=== PATIENT | male | born 1980 | race Caucasian/White ===

== ENCOUNTER 2016-04-30 10:42 | Outpatient (RCR) | payer OTHER | END 2016-07-29 | LOC: WSOH | DX: S96.912A Strain of unspecified muscle and tendon at ankle and foot level, left foot, initial encounter (principal); X50.1XXA Overexertion from prolonged static or awkward postures, initial encounter; Y99.0 Civilian activity done for income or pay ==

== ENCOUNTER → 2016-04-30 | Outpatient (REF) | LOC: WSOH 10:51 | DX: Z01.83 Encounter for blood typing (principal) ==

== ENCOUNTER 2018-10-03 10:54 | Emergency (ER) | payer OTHER ==
[~2018-10-03] VITALS: Ht 177.8 cm; Wt 102.3 kg
[2018-10-03 11:03] VITALS: BP 150/91; TEMP 98.8
[2018-10-03 12:10] VITALS: PULSE 70
== END 2018-10-03 12:10 | disposition home or self-care (01) ==
LOC: COL.ER 10:54
DX: S40.012A Contusion of left shoulder, initial encounter (principal); S70.02XA Contusion of left hip, initial encounter; V59.9XXA Occupant (driver) (passenger) of pick-up truck or van injured in unspecified traffic accident, initial encounter

== ENCOUNTER 2018-10-03 18:28 | Emergency (ER) | payer OTHER ==
[~2018-10-03] VITALS: Ht 177.8 cm; Wt 102.3 kg
[2018-10-03 22:58] VITALS: BP 133/78; PULSE 60; TEMP 97.4
== END 2018-10-03 23:42 | disposition home or self-care (01) ==
LOC: COL.ER 18:28
DX: F07.81 Postconcussional syndrome (principal); R11.0 Nausea; F17.220 Nicotine dependence, chewing tobacco, uncomplicated; Z90.49 Acquired absence of other specified parts of digestive tract
CPT/HCPCS: J2550

== ENCOUNTER → 2018-12-22 | Outpatient (CLI) | payer OTHER ==
[2018-12-22 10:37] LABS: BASO % 0.9 % (0.0-2.0); EOS # 0.1 (0.0-0.7); GRAN # 2.7 (1.4-6.5); GRAN % 58.2 % (42.2-75.2); HEMATOCRIT 50.8 % (42.0-52.0); HEMOGLOBIN 16.5 g/dl (13.5-18.0); LYMPH # 1.3 (1.2-3.4); LYMPH % 27.3 % (20.0-51.0); MEAN CELL VOLUME 83 fl (80.0-100.0); MEAN CORPUSCULAR HEMOGLOBIN 27 pg (27.0-31.0); MEAN CORPUSCULAR HGB CONC 33 g/dl (33.0-37.0); MEAN PLATELET VOLUME 8.8 fl (7.4-10.4); MONO # 0.5 (0.1-0.6); MONO % 11.4 % (1.7-9.3); PLATELET COUNT 263 K/mm3 (130-400); REDCELL DISTRIBUTION WIDTH-CV 13.7 % (11.5-14.5)
[2018-12-22 10:54] LABS: ALANINE AMINOTRANSFERASE 60 U/L (21-72); ALBUMIN 4.6 gm/dL (3.5-5.0); ALKALINE PHOSPHATASE 94 U/L (50-136); ANION GAP 10 mmol/L (7-16); AST,SGOT 40 U/L (15-37); BILIRUBIN,TOTAL 2.4 mg/dL (0.0-1.0); BLOOD UREA NITROGEN 10 mg/dL (9-20); CALCIUM 9.6 mg/dL (8.4-10.2); CARBON DIOXIDE 29 mmol/L (22-30); CHLORIDE 101 mmol/L (98-107); CREATININE, serum 1.05 (0.66-1.25); GLUCOSE 89 mg/dL (74-106); MAGNESIUM 2.1 mg/dL (1.6-2.3); POTASSIUM 5.2 mmol/L (3.4-5.0); SODIUM 140 mmol/L (137-145)
[2018-12-22 10:55] LABS: ERYTHROCYTE SEDIMENTATION RATE 1 mm/hr (0-15)
[2018-12-22 11:01] LABS: C-REACTIVE PROTEIN < 0.5 mg/dL (0.0-0.9)
== END ==
LOC: COL.RAD 10:08
PROVIDERS: Family Medicine
DX: Z01.812 Encounter for preprocedural laboratory examination (principal); R55 Syncope and collapse; R00.2 Palpitations; R42 Dizziness and giddiness

== ENCOUNTER → 2018-12-23 | Outpatient (CLI) | payer OTHER | LOC: COL.RAD 14:25 | DX: R55 Syncope and collapse (principal); R42 Dizziness and giddiness; R00.2 Palpitations ==

== ENCOUNTER → 2018-12-30 | Outpatient (CLI) | payer OTHER | LOC: COL.RAD 10:10 | DX: E34.8 Other specified endocrine disorders (principal); G51.8 Other disorders of facial nerve | CPT/HCPCS: A9585 ==

== ENCOUNTER 2018-12-31 22:32 | Emergency (ER) | payer OTHER ==
[~2018-12-31] VITALS: Ht 177.8 cm; Wt 90.9 kg
[2018-12-31 22:32] VITALS: TEMP 98.1
[2018-12-31 23:22] LABS: BASO # 0.1 (0.0-0.2); EOS # 0.2 (0.0-0.7); EOS % 2.2 % (0-4.0); GRAN # 3.1 (1.4-6.5); GRAN % 46.1 % (42.2-75.2); HEMATOCRIT 50.4 % (42.0-52.0); HEMOGLOBIN 16.2 g/dl (13.5-18.0); LYMPH # 2.8 (1.2-3.4); LYMPH % 41.3 % (20.0-51.0); MEAN CELL VOLUME 83 fl (80.0-100.0); MEAN CORPUSCULAR HEMOGLOBIN 27 pg (27.0-31.0); MEAN CORPUSCULAR HGB CONC 32 g/dl (33.0-37.0); MEAN PLATELET VOLUME 9.1 fl (7.4-10.4); MONO # 0.6 (0.1-0.6); MONO % 9.3 % (1.7-9.3); PLATELET COUNT 292 K/mm3 (130-400); RED BLOOD COUNT 6.04 M/mm3 (4.20-5.60); REDCELL DISTRIBUTION WIDTH-CV 13.6 % (11.5-14.5)
[2018-12-31 23:27] LABS: ALANINE AMINOTRANSFERASE 29 U/L (21-72); ALBUMIN 4.6 gm/dL (3.5-5.0); ALCOHOL(ethanol),MEDICAL 227 mg/dL; ALKALINE PHOSPHATASE 79 U/L (50-136); ANION GAP 11 mmol/L (7-16); AST,SGOT 36 U/L (15-37); BILIRUBIN,TOTAL 0.9 mg/dL (0.0-1.0); BLOOD UREA NITROGEN 9 mg/dL (9-20); CALCIUM 9.2 mg/dL (8.4-10.2); CARBON DIOXIDE 27 mmol/L (22-30); CHLORIDE 107 mmol/L (98-107); CREATININE, serum 1.04 (0.66-1.25); GLUCOSE 84 mg/dL (74-106); LIPASE 89 U/L (23-300); MAGNESIUM 2.5 mg/dL (1.6-2.3); SODIUM 145 mmol/L (137-145); TOTAL PROTEIN 8.1 gm/dL (6.4-8.2)
[2018-12-31 23:38] LABS: TROPONIN-I < 0.012 ng/mL (0.000-0.035)
[2019-01-01 00:07] LABS: COLLECTION METHOD CLEAN CATCH
[2019-01-01 00:12] LABS: PH 5 (5-8); SQUAMOUS EPITHELIAL None Seen /hpf; URINE APPEARANCE Clear; URINE BACTERIA None Seen /hpf; URINE BILIRUBIN Negative (NEGATIVE); URINE BLOOD Negative (NEGATIVE); URINE COLOR Straw; URINE GLUCOSE Negative (NEGATIVE); URINE KETONE Negative (NEGATIVE); URINE LEUKOCYTE ESTERASE Negative (NEGATIVE); URINE NITRATE Negative (NEGATIVE); URINE PROTEIN(semi-quant) Negative (NEGATIVE); URINE RBC None Seen /hpf; URINE UROBILINOGEN Negative (NEGATIVE)
[2019-01-01 00:20] LABS: TRICYCLIC ANTIDEPRESS URINE NEGATIVE
[2019-01-01 03:45] VITALS: BP 103/67; PULSE 64
== END 2019-01-01 03:45 | disposition home or self-care (01) ==
LOC: COL.ER 22:32
PROVIDERS: Emergency Medicine
DX: F10.129 Alcohol abuse with intoxication, unspecified (principal); Y90.7 Blood alcohol level of 200-239 mg/100 ml
CPT/HCPCS: J7030

== ENCOUNTER → 2019-01-18 | Outpatient (CLI) | payer OTHER | LOC: COL.RAD 07:06 | DX: R26.81 Unsteadiness on feet (principal) ==

== ENCOUNTER → 2019-02-06 | Outpatient (CLI) | payer OTHER | LOC: BHSO 13:40 | DX: F41.0 Panic disorder [episodic paroxysmal anxiety] (principal) ==

== ENCOUNTER 2019-09-25 19:49 | Emergency (ER) | payer OTHER ==
[~2019-09-25] VITALS: Ht 175.3 cm; Wt 95.5 kg
[2019-09-25 19:58] VITALS: TEMP 99.3
[2019-09-25 20:55] LABS: BASO # 0.1 (0.0-0.2); BASO % 0.9 % (0.0-2.0); EOS % 0.5 % (0-4.0); GRAN # 5.4 (1.4-6.5); GRAN % 66.2 % (42.2-75.2); HEMATOCRIT 44.3 % (42.0-52.0); LYMPH # 1.9 (1.2-3.4); LYMPH % 23.5 % (20.0-51.0); MEAN CELL VOLUME 78 fl (80.0-100.0); MEAN CORPUSCULAR HEMOGLOBIN 25 pg (27.0-31.0); MEAN CORPUSCULAR HGB CONC 32 g/dl (33.0-37.0); MEAN PLATELET VOLUME 8.5 fl (7.4-10.4); MONO # 0.7 (0.1-0.6); MONO % 8.7 % (1.7-9.3); PLATELET COUNT 315 K/mm3 (130-400); RED BLOOD COUNT 5.67 M/mm3 (4.20-5.60); REDCELL DISTRIBUTION WIDTH-CV 13.8 % (11.5-14.5)
[2019-09-25 21:06] LABS: ALANINE AMINOTRANSFERASE 45 U/L (4-49); ALBUMIN 4.3 gm/dL (3.5-5.0); ALKALINE PHOSPHATASE 90 U/L (50-136); ANION GAP 10 mmol/L (7-16); AST,SGOT 42 U/L (15-37); BILIRUBIN,TOTAL 1.5 mg/dL (0.0-1.0); BLOOD UREA NITROGEN 8 mg/dL (9-20); CALCIUM 8.8 mg/dL (8.4-10.2); CARBON DIOXIDE 27 mmol/L (22-30); CHLORIDE 99 mmol/L (98-107); CREATININE, serum 0.95 (0.66-1.25); GLUCOSE 93 mg/dL (74-106); LIPASE 46 U/L (23-300); POTASSIUM 3.2 mmol/L (3.4-5.0); SODIUM 137 mmol/L (137-145); TOTAL PROTEIN 7.8 gm/dL (6.4-8.2)
[2019-09-25 21:09] LABS: C-REACTIVE PROTEIN < 0.5 mg/dL (0.0-0.9)
[2019-09-25] MEDS ORDERED: ZOFRAN ODT4 MG PO (21:57)
[2019-09-25] MEDS ORDERED: PROTONIX 40MG T40 MG PO (21:57)
[2019-09-25] MEDS ORDERED: LIPITOR 10MG10 MG PO (23:24)
[2019-09-25 23:25] VITALS: BP 125/84; PULSE 67
== END 2019-09-25 23:34 | disposition home or self-care (01) ==
LOC: COL.ER 19:49
PROVIDERS: Emergency Medicine
DX: K92.0 Hematemesis (principal); E78.5 Hyperlipidemia, unspecified; R10.13 Epigastric pain; Z90.49 Acquired absence of other specified parts of digestive tract; Z79.899 Other long term (current) drug therapy
CPT/HCPCS: C9113; J2405; J2550; J3010; J7030

== ENCOUNTER 2019-10-02 19:18 | Emergency (ER) | payer OTHER ==
[~2019-10-02] VITALS: Ht 175.3 cm; Wt 93.2 kg
[~2019-10-02 19:18] MED LIST: LIPITOR 10MG10 MG PO; PROTONIX 40MG T40 MG PO; ZOFRAN ODT4 MG PO
[2019-10-02 19:32] VITALS: BP 142/89; TEMP 98.2
[2019-10-02 20:32] LABS: BASO # 0.1 (0.0-0.2); BASO % 0.9 % (0.0-2.0); EOS # 0.1 (0.0-0.7); EOS % 0.7 % (0-4.0); GRAN # 4.4 (1.4-6.5); GRAN % 62.3 % (42.2-75.2); HEMATOCRIT 45.8 % (42.0-52.0); HEMOGLOBIN 14.6 g/dl (13.5-18.0); LYMPH # 1.9 (1.2-3.4); LYMPH % 26.2 % (20.0-51.0); MEAN CELL VOLUME 78 fl (80.0-100.0); MEAN CORPUSCULAR HEMOGLOBIN 25 pg (27.0-31.0); MEAN CORPUSCULAR HGB CONC 32 g/dl (33.0-37.0); MEAN PLATELET VOLUME 8.8 fl (7.4-10.4); MONO # 0.7 (0.1-0.6); MONO % 9.6 % (1.7-9.3); PLATELET COUNT 300 K/mm3 (130-400); RED BLOOD COUNT 5.89 M/mm3 (4.20-5.60); REDCELL DISTRIBUTION WIDTH-CV 14.1 % (11.5-14.5)
[2019-10-02 20:51] LABS: ALANINE AMINOTRANSFERASE 39 U/L (4-49); ALBUMIN 4.7 gm/dL (3.5-5.0); ALKALINE PHOSPHATASE 114 U/L (50-136); ANION GAP 11 mmol/L (7-16); AST,SGOT 41 U/L (15-37); BILIRUBIN,TOTAL 1.7 mg/dL (0.0-1.0); BLOOD UREA NITROGEN 11 mg/dL (9-20); CALCIUM 9.4 mg/dL (8.4-10.2); CARBON DIOXIDE 28 mmol/L (22-30); CHLORIDE 99 mmol/L (98-107); CREATININE, serum 1.18 (0.66-1.25); GLUCOSE 103 mg/dL (74-106); LIPASE 47 U/L (23-300); POTASSIUM 3.4 mmol/L (3.4-5.0); SODIUM 137 mmol/L (137-145); TOTAL PROTEIN 8.7 gm/dL (6.4-8.2)
[2019-10-02 21:04] LABS: C-REACTIVE PROTEIN < 0.5 mg/dL (0.0-0.9)
[2019-10-02] MEDS ORDERED: CARAFATE 1GM1 G PO (22:04)
[2019-10-02] MEDS ORDERED: PHENERGAN 25 TA25 MG PO (22:04)
[2019-10-02] MEDS ORDERED: PERCOCET 325 MG1 TA2 PO (22:57)
[2019-10-02 23:14] VITALS: PULSE 81
== END 2019-10-02 23:15 | disposition home or self-care (01) ==
LOC: COL.ER 19:18
PROVIDERS: Physician Assistant
DX: R10.13 Epigastric pain (principal); R11.10 Vomiting, unspecified; E78.5 Hyperlipidemia, unspecified
CPT/HCPCS: C9113; J1170; J2405; J2550; J7030; Q9967

== ENCOUNTER 2019-10-10 14:37 | Emergency (ER) | payer OTHER ==
[~2019-10-10] VITALS: Ht 175.3 cm; Wt 90.9 kg
[~2019-10-10 14:37] MED LIST changes: +CARAFATE 1GM1 G PO; +PERCOCET 325 MG1 TA2 PO; +PHENERGAN 25 TA25 MG PO
[2019-10-10 14:44] VITALS: TEMP 98.3
[2019-10-10 15:19] LABS: BASO # 0.1 (0.0-0.2); BASO % 0.6 % (0.0-2.0); EOS % 0.1 % (0-4.0); GRAN # 6.6 (1.4-6.5); GRAN % 75.2 % (42.2-75.2); HEMATOCRIT 46.9 % (42.0-52.0); HEMOGLOBIN 14.9 g/dl (13.5-18.0); LYMPH # 1.3 (1.2-3.4); LYMPH % 14.7 % (20.0-51.0); MEAN CELL VOLUME 78 fl (80.0-100.0); MEAN CORPUSCULAR HEMOGLOBIN 25 pg (27.0-31.0); MEAN CORPUSCULAR HGB CONC 32 g/dl (33.0-37.0); MEAN PLATELET VOLUME 9.3 fl (7.4-10.4); MONO # 0.8 (0.1-0.6); MONO % 9.2 % (1.7-9.3); PLATELET COUNT 251 K/mm3 (130-400); RED BLOOD COUNT 6.02 M/mm3 (4.20-5.60)
[2019-10-10 15:29] LABS: ALBUMIN 4.7 gm/dL (3.5-5.0); CALCIUM 9.3 mg/dL (8.4-10.2); CREATININE, serum 1.09 (0.66-1.25); POTASSIUM 3.9 mmol/L (3.4-5.0); TOTAL PROTEIN 8.8 gm/dL (6.4-8.2)
[2019-10-10] MEDS ORDERED: NORCO 325 MG-51 TAB PO (16:30)
[2019-10-10] MEDS ORDERED: PHENERGAN 25 TA25 MG PO (16:30)
[2019-10-10] MEDS ORDERED: CARAFATE 1GM1 G PO (16:30)
[2019-10-10 17:22] VITALS: BP 107/58; PULSE 59
== END 2019-10-10 17:22 | disposition home or self-care (01) ==
LOC: COL.ER 14:37
PROVIDERS: Emergency Medicine
DX: R10.11 Right upper quadrant pain (principal); R10.13 Epigastric pain; Z90.89 Acquired absence of other organs
CPT/HCPCS: C9113; J0780; J1170; J7030

== ENCOUNTER 2019-10-13 06:58 | Day surgery (SDC) | payer OTHER ==
[~2019-10-13] VITALS: Ht 175.3 cm; Wt 95.0 kg
[~2019-10-13 06:58] MED LIST changes: +NORCO 325 MG-51 TAB PO
[2019-10-13 07:24] VITALS: BP 142/106; PULSE 82; TEMP 98
[2019-10-13] MEDS ORDERED: NORCO 325 MG-51 TAB PO (07:31)
[2019-10-13] MEDS ORDERED: ZOFRAN 4MG T4 MG/TAB PO (07:31)
[2019-10-13] MEDS ORDERED: PROTONIX 40MG T40 MG PO (07:32)
[2019-10-13] MEDS ORDERED: PHENERGAN 25 TA25 MG PO (07:32)
[2019-10-13] MEDS ORDERED: CARAFATE 1GM1 G PO (07:33)
--- NOTE | 2019-10-13 07:35 | NUR ---
TO [facility] AT 0705- CALL LIGHT IN REACH WILL CALL [facility] FOR RIDE HOME
[2019-10-13 08:45] VITALS: BP 122/87; PULSE 80; TEMP 98.2
--- NOTE | 2019-10-13 08:45 | NUR ---
Pt to [facility] via cart from [facility]. Pt drowsy, but awakens easily. Pt ambulates to recliner with stand by assistance. Warm blanket provided. Pt made comfortable in recliner. Water provided. Pt denies food at this time. Pt request to rest. Call light within reach.
[2019-10-13 09:00] VITALS: BP 124/81; PULSE 62
--- NOTE | 2019-10-13 09:00 | NUR ---
Pt sleeping. Respirations even and unlabored. Call light within reach.
[2019-10-13 09:15] VITALS: BP 124/80; PULSE 60
--- NOTE | 2019-10-13 09:15 | NUR ---
Pt continues to rest. Stephanie needs. Call light within reach.
[2019-10-13 09:30] VITALS: BP 133/93; PULSE 94
--- NOTE | 2019-10-13 09:30 | NUR ---
Discharge instructions reviewed. Pt voices understanding. IV site discontinued with all parts intact. Pt up to dress. Call light within reach.
--- NOTE | 2019-10-13 09:50 | NUR ---
Pt escorted to private car via wheel chair. Pt accompanied home by his ex .
== END 2019-10-13 09:50 | disposition home or self-care (01) ==
LOC: SDCO 06:58
DX: K21.0 Gastro-esophageal reflux disease with esophagitis (principal); K92.1 Melena; K92.0 Hematemesis; E78.00 Pure hypercholesterolemia, unspecified
CPT/HCPCS: J2250; J3010; J7030

== ENCOUNTER → 2019-10-25 | Outpatient (CLI) | payer OTHER ==
[~2019-10-25] MED LIST changes: +ZOFRAN 4MG T4 MG/TAB PO
== END ==
LOC: COL.RAD 09:43
DX: K82.8 Other specified diseases of gallbladder (principal)
CPT/HCPCS: A9537; J2805